=== PATIENT | male | born 1980 | race Caucasian/White ===

== ENCOUNTER 2021-10-31 16:30 | Emergency (ER) | payer BC ==
[~2021-10-31] VITALS: Ht 177.8 cm; Wt 100.0 kg
[2021-10-31 16:36] VITALS: BP 138/89
[2021-10-31] MEDS ORDERED: GUAI600T26 MT (16:49)
[2021-10-31] MEDS ORDERED: BENZ-16 MT (16:49)
[2021-10-31] MEDS ORDERED: FLUT9.9S BOTHNSTRLS (16:49)
[2021-10-31] MEDS ORDERED: ALBU6.7H9 INH (16:49)
== END 2021-10-31 17:36 | disposition home or self-care (01) ==
LOC: ER 16:30
DX: J06.9 Acute upper respiratory infection, unspecified (principal); Z20.822 Contact with and (suspected) exposure to COVID-19; R03.0 Elevated blood-pressure reading, without diagnosis of hypertension
CPT/HCPCS: 87426; 99283; C9803

== ENCOUNTER 2022-05-11 18:46 | Emergency (ER) | payer BC ==
[~2022-05-11] VITALS: Ht 177.8 cm; Wt 98.0 kg
[~2022-05-11 18:46] MED LIST: ALBU6.7H3 INH; BENZ-16 MT; FLUT9.9S BOTHNSTRLS; GUAI600T26 MT
[2022-05-11 18:57] VITALS: BP 134/90
[2022-05-11] MEDS ORDERED: CYCLOBENZAPRINE 10MG TABLET PO ONE (19:30)
[2022-05-11] MEDS ORDERED: IBUPROFEN 400MG TABLET PO ONE (19:30)
[2022-05-11] MEDS ORDERED: METH-653 MT (20:23)
[2022-05-11] MEDS ORDERED: IBUP-2029 MT (20:23)
== END 2022-05-11 20:41 | disposition home or self-care (01) ==
LOC: ER 19:43
DX: M54.2 Cervicalgia (principal); Z79.899 Other long term (current) drug therapy
CPT/HCPCS: 99284